=== PATIENT | male | born 1955 | race Caucasian/White ===

== ENCOUNTER 2022-03-21 15:36 | Inpatient (IN) ==
[2022-03-21 19:29] LABS: Basophils # 0.1 K/mcL (0.0-0.2); Basophils % 0.6 %; Eosinophils # 0.4 K/mcL (0.0-0.6); Eosinophils % 5.2 %; Hematocrit 33.3 % (37.5-50.1); Hemoglobin 10.8 g/dL (12.9-16.9); Immature Granulocytes % 0.4 % (0-4); Lymphocytes # 3.3 K/mcL (0.6-4.6); Lymphocytes % 39.2 %; Mean Corpuscular HGB Conc 32.4 g/dL (31.6-35.5); Mean Corpuscular Hemoglobin 28.3 pg (28.0-33.3); Mean Corpuscular Volume 87.2 fL (83.0-100.0); Mean Platelet Volume 9.1 fL (9.4-12.4); Monocytes # 0.7 K/mcL (0.0-1.3); Monocytes % 8.1 %; Platelet Count 215 K/mcL (140-400); Red Blood Count 3.82 M/mcL (4.19-5.50); Red Cell Distribution Width 15.4 % (11.5-14.5); Segmented Neutrophils % 46.5 %; White Blood Count 8.5 K/mcL (4.3-11.1)
[2022-03-21 19:36] LABS: INR 2.1; Prothrombin Time 23.7 Seconds (9.4-12.1)
[2022-03-21 19:39] LABS: Activated Partial Thrombo Time 38.9 Seconds (26.0-36.0)
[2022-03-21 19:42] LABS: BUN/Creatinine Ratio 21 (6-26); Blood Urea Nitrogen 24 mg/dL (8-23); Calcium 9.5 mg/dL (8.6-10.3); Carbon Dioxide 31 mEq/L (23-29); Chloride 97 mEq/L (98-107); Glucose 82 mg/dL (70-105); Osmolality,Calculated 281 (280-300); Potassium 4.7 mEq/L (3.5-5.1); Sodium 134 mEq/L (136-145); eGFR For African Americans > 60 (> 60); eGFR For Non-African Americans > 60 (> 60)
[2022-03-21] MEDS ORDERED: Ondansetron 4 MG/2 ML VIAL IVP PRN (19:45)
[2022-03-21] MEDS ORDERED: Naloxone 0.4 MG/ML INJ IVP PRN (19:45)
[2022-03-21] MEDS ORDERED: Melatonin 3 MG TABLET PO PRN (19:45)
[2022-03-21] MEDS: *HR* HYDROcodone/Acet 5/325 mg TABLET PO PRN (22:03)
[2022-03-21] MEDS: clonazePAM 0.5 MG TABLET PO SCH (22:03)
[2022-03-21] MEDS: Rivastigmine Tartrate (oral) 1.5 MG CAPSULE PO SCH (22:21)
[2022-03-21] MEDS ORDERED: *HR* Heparin 5,000 UNIT/ML VIAL IVP PRN (23:46)
[2022-03-22] MEDS ORDERED: *HR* Dextrose 50 % in Water (Syg) 50 ML SYRINGE IVP PRN (00:24)
[2022-03-22] MEDS ORDERED: D5% in Water 1,000 ML IVC PRN (00:24)
[2022-03-22] MEDS ORDERED: Dextrose Gel 15 GM/37.5 ML TUBE PO PRN ×2 (00:24)
[2022-03-22] MEDS ORDERED: Perflutren Lipid Microsphere 1.3 ML in 0.9 % Sodium Chloride 8.7 ML IVP PRN (00:25)
[2022-03-22 03:55] LABS: Basophils # 0.1 K/mcL (0.0-0.2); Basophils % 0.8 %; Eosinophils # 0.4 K/mcL (0.0-0.6); Eosinophils % 5.2 %; Hematocrit 30.8 % (37.5-50.1); Immature Granulocytes % 0.3 % (0-4); Lymphocytes # 2.9 K/mcL (0.6-4.6); Lymphocytes % 39.8 %; Mean Corpuscular HGB Conc 32.5 g/dL (31.6-35.5); Mean Corpuscular Hemoglobin 28.2 pg (28.0-33.3); Mean Corpuscular Volume 86.8 fL (83.0-100.0); Mean Platelet Volume 9.2 fL (9.4-12.4); Monocytes # 0.7 K/mcL (0.0-1.3); Monocytes % 9.3 %; Neutrophils # 3.3 K/mcL (1.6-8.9); Platelet Count 211 K/mcL (140-400); Red Blood Count 3.55 M/mcL (4.19-5.50); Red Cell Distribution Width 15.2 % (11.5-14.5); Segmented Neutrophils % 44.6 %; White Blood Count 7.3 K/mcL (4.3-11.1)
[2022-03-22 04:00] LABS: INR 2.1; Prothrombin Time 23.7 Seconds (9.4-12.1)
[2022-03-22 04:02] LABS: Activated Partial Thrombo Time 37.9 Seconds (26.0-36.0)
[2022-03-22 04:23] LABS: % Iron Saturation 17 % (20-55); Iron 48 mcg/dL (65-175); Transferrin 199 mg/dL (203-362)
[2022-03-22] MEDS: Heparin 25,000UNIT/250ML 1/2NS 25,000 UNIT/250 ML IV.SOLN IVC SCH ×2 (04:23→22:28)
[2022-03-22 04:24] LABS: Alanine Aminotransferase < 3 Units/L (7-52); Albumin 3.4 g/dL (3.5-5.7); Albumin/Globulin Ratio 1.2 (1.1-2.2); Alkaline Phosphatase 106 Units/L (34-104); Aspartate Amino Transferase 13 Units/L (13-39); BUN/Creatinine Ratio 20 (6-26); Bilirubin,Total 1.1 mg/dL (0.3-1.0); Blood Urea Nitrogen 20 mg/dL (8-23); Calcium 9.2 mg/dL (8.6-10.3); Carbon Dioxide 27 mEq/L (23-29); Chloride 101 mEq/L (98-107); Chol/HDL Ratio 2.9 (0-4.9); Cholesterol 89 mg/dL (< 200); Globulin 2.9 g/dL (2.4-3.5); Glucose 89 mg/dL (70-105); HDL Cholesterol 31 mg/dL (40-59); LDL Cholesterol,Calculated 39 mg/dL (< 100); Magnesium 1.8 mg/dL (1.6-2.6); Osmolality,Calculated 280 (280-300); Phosphorous 3.1 mg/dL (2.7-4.5); Potassium 4.3 mEq/L (3.5-5.1); Sodium 134 mEq/L (136-145); Thyroid Stimulating Hormone 0.693 mcIU/mL (0.340-5.600); Total Protein 6.3 g/dL (6.4-8.9); Triglycerides 97 mg/dL (< 150); eGFR For African Americans > 60 (> 60); eGFR For Non-African Americans > 60 (> 60)
[2022-03-22 04:28] LABS: Ferritin 119 ng/mL (20-250)
[2022-03-22 04:32] LABS: Folate 16.7 ng/mL (3.0-16.0)
[2022-03-22] MEDS: Rivastigmine Tartrate (oral) 1.5 MG CAPSULE PO SCH ×2 (08:17→20:47)
[2022-03-22] MEDS: Gabapentin 100 MG CAPSULE PO SCH ×4 (08:17→20:48)
[2022-03-22] MEDS: *HR* Heparin 5,000 UNIT/ML VIAL IVP PRN (10:44)
[2022-03-22] MEDS ORDERED: Furosemide 40 MG/4 ML VIAL IVP ONE (11:41)
[2022-03-22] MEDS: Carbidopa/Levodopa 25/100 TABLET PO SCH ×3 (15:29→20:48)
[2022-03-22] MEDS: *HR* OxyCODONE Immed Rel 5 MG TABLET PO PRN (18:05)
[2022-03-22] MEDS: Aspirin Enteric Coated 81 MG Tablet PO SCH (18:06)
[2022-03-22] MEDS: QUEtiapine Fumarate 25 MG TABLET PO SCH (20:47)
[2022-03-22] MEDS: clonazePAM 0.5 MG TABLET PO SCH (20:48)
[2022-03-22] MEDS: Finasteride 5 MG TABLET PO SCH (20:48)
[2022-03-23] MEDS: Carbidopa/Levodopa 25/100 TABLET PO SCH ×6 (05:48→22:54)
[2022-03-23 06:12] LABS: Basophils # 0.1 K/mcL (0.0-0.2); Basophils % 0.8 %; Eosinophils # 0.3 K/mcL (0.0-0.6); Eosinophils % 3.8 %; Hematocrit 32.9 % (37.5-50.1); Hemoglobin 10.6 g/dL (12.9-16.9); Immature Granulocytes % 0.4 % (0-4); Lymphocytes # 2.7 K/mcL (0.6-4.6); Lymphocytes % 36.8 %; Mean Corpuscular HGB Conc 32.2 g/dL (31.6-35.5); Mean Corpuscular Hemoglobin 27.7 pg (28.0-33.3); Mean Corpuscular Volume 86.1 fL (83.0-100.0); Mean Platelet Volume 9.3 fL (9.4-12.4); Monocytes # 0.7 K/mcL (0.0-1.3); Neutrophils # 3.6 K/mcL (1.6-8.9); Platelet Count 203 K/mcL (140-400); Red Blood Count 3.82 M/mcL (4.19-5.50); Red Cell Distribution Width 15.2 % (11.5-14.5); Segmented Neutrophils % 49.2 %; White Blood Count 7.4 K/mcL (4.3-11.1)
[2022-03-23 06:30] LABS: BUN/Creatinine Ratio 16 (6-26); Blood Urea Nitrogen 16 mg/dL (8-23); Calcium 9.2 mg/dL (8.6-10.3); Carbon Dioxide 29 mEq/L (23-29); Chloride 100 mEq/L (98-107); Glucose 90 mg/dL (70-105); Magnesium 1.9 mg/dL (1.6-2.6); Osmolality,Calculated 277 (280-300); Potassium 4.2 mEq/L (3.5-5.1); Sodium 133 mEq/L (136-145); eGFR For African Americans > 60 (> 60); eGFR For Non-African Americans > 60 (> 60)
[2022-03-23] MEDS: Bumetanide 1 MG TABLET PO SCH (08:08)
[2022-03-23] MEDS: Gabapentin 100 MG CAPSULE PO SCH ×3 (08:09→20:33)
[2022-03-23] MEDS: Rivastigmine Tartrate (oral) 1.5 MG CAPSULE PO SCH ×2 (08:10→20:33)
[2022-03-23] MEDS: Aspirin Enteric Coated 81 MG Tablet PO SCH (08:10)
[2022-03-23] MEDS: *HR* OxyCODONE Immed Rel 5 MG TABLET PO PRN (11:46)
[2022-03-23] MEDS: Acetaminophen 325 MG TABLET PO PRN (15:22)
[2022-03-23] MEDS: Heparin 25,000UNIT/250ML 1/2NS 25,000 UNIT/250 ML IV.SOLN IVC SCH (15:56)
[2022-03-23] MEDS: QUEtiapine Fumarate 25 MG TABLET PO SCH (20:32)
[2022-03-23] MEDS: Finasteride 5 MG TABLET PO SCH (20:33)
[2022-03-23] MEDS: clonazePAM 0.5 MG TABLET PO SCH (20:34)
[2022-03-24] MEDS: Acetaminophen 325 MG TABLET PO PRN ×2 (03:59→15:36)
[2022-03-24 05:40] LABS: Basophils # 0.1 K/mcL (0.0-0.2); Basophils % 0.5 %; Eosinophils # 0.4 K/mcL (0.0-0.6); Eosinophils % 4.2 %; Hematocrit 30.2 % (37.5-50.1); Hemoglobin 9.7 g/dL (12.9-16.9); Immature Granulocytes % 0.4 % (0-4); Lymphocytes # 2.7 K/mcL (0.6-4.6); Lymphocytes % 29.2 %; Mean Corpuscular HGB Conc 32.1 g/dL (31.6-35.5); Mean Corpuscular Hemoglobin 28.4 pg (28.0-33.3); Mean Corpuscular Volume 88.3 fL (83.0-100.0); Mean Platelet Volume 9.2 fL (9.4-12.4); Monocytes # 0.9 K/mcL (0.0-1.3); Monocytes % 9.7 %; Neutrophils # 5.1 K/mcL (1.6-8.9); Platelet Count 190 K/mcL (140-400); Red Blood Count 3.42 M/mcL (4.19-5.50); Red Cell Distribution Width 15.3 % (11.5-14.5); White Blood Count 9.2 K/mcL (4.3-11.1)
[2022-03-24] MEDS: Carbidopa/Levodopa 25/100 TABLET PO SCH ×6 (05:45→20:43)
[2022-03-24 06:56] LABS: BUN/Creatinine Ratio 17 (6-26); Blood Urea Nitrogen 19 mg/dL (8-23); Calcium 8.5 mg/dL (8.6-10.3); Carbon Dioxide 22 mEq/L (23-29); Chloride 101 mEq/L (98-107); Glucose 127 mg/dL (70-105); Magnesium 1.7 mg/dL (1.6-2.6); Osmolality,Calculated 278 (280-300); Potassium 3.8 mEq/L (3.5-5.1); Sodium 132 mEq/L (136-145); eGFR For African Americans > 60 (> 60); eGFR For Non-African Americans > 60 (> 60)
[2022-03-24] MEDS: Gabapentin 100 MG CAPSULE PO SCH ×3 (08:45→20:43)
[2022-03-24] MEDS: Rivastigmine Tartrate (oral) 1.5 MG CAPSULE PO SCH ×2 (08:47→20:43)
[2022-03-24] MEDS: Bumetanide 1 MG TABLET PO SCH (08:47)
[2022-03-24] MEDS: Aspirin Enteric Coated 81 MG Tablet PO SCH (08:47)
[2022-03-24] MEDS: Heparin 25,000UNIT/250ML 1/2NS 25,000 UNIT/250 ML IV.SOLN IVC SCH (09:57)
[2022-03-24] MEDS: *HR* OxyCODONE Immed Rel 5 MG TABLET PO PRN (12:01)
[2022-03-24] MEDS: Melatonin 3 MG TABLET PO SCH (20:43)
[2022-03-24] MEDS: Finasteride 5 MG TABLET PO SCH (20:43)
[2022-03-24] MEDS: clonazePAM 0.5 MG TABLET PO SCH (20:43)
[2022-03-24] MEDS: QUEtiapine Fumarate 25 MG TABLET PO SCH (20:43)
[2022-03-24] MEDS: Ipratropium/Albuterol Neb 3 ML IH PRN (20:58)
[2022-03-25 00:48] LABS: Basophils # 0.1 K/mcL (0.0-0.2); Basophils % 0.6 %; Eosinophils # 0.5 K/mcL (0.0-0.6); Eosinophils % 5.9 %; Hematocrit 29.7 % (37.5-50.1); Hemoglobin 9.6 g/dL (12.9-16.9); Immature Granulocytes % 0.8 % (0-4); Lymphocytes % 34.3 %; Mean Corpuscular HGB Conc 32.3 g/dL (31.6-35.5); Mean Corpuscular Hemoglobin 28.1 pg (28.0-33.3); Mean Corpuscular Volume 86.8 fL (83.0-100.0); Mean Platelet Volume 9.4 fL (9.4-12.4); Monocytes # 0.9 K/mcL (0.0-1.3); Monocytes % 10.8 %; Neutrophils # 4.1 K/mcL (1.6-8.9); Platelet Count 197 K/mcL (140-400); Red Blood Count 3.42 M/mcL (4.19-5.50); Red Cell Distribution Width 15.3 % (11.5-14.5); Segmented Neutrophils % 47.6 %; White Blood Count 8.6 K/mcL (4.3-11.1)
[2022-03-25 01:04] LABS: BUN/Creatinine Ratio 16 (6-26); Blood Urea Nitrogen 18 mg/dL (8-23); Calcium 8.5 mg/dL (8.6-10.3); Carbon Dioxide 28 mEq/L (23-29); Chloride 100 mEq/L (98-107); Glucose 97 mg/dL (70-105); Magnesium 1.7 mg/dL (1.6-2.6); Osmolality,Calculated 280 (280-300); Potassium 4.1 mEq/L (3.5-5.1); Sodium 134 mEq/L (136-145); eGFR For African Americans > 60 (> 60); eGFR For Non-African Americans > 60 (> 60)
[2022-03-25] MEDS: Heparin 25,000UNIT/250ML 1/2NS 25,000 UNIT/250 ML IV.SOLN IVC SCH ×2 (02:59→20:08)
[2022-03-25] MEDS: Carbidopa/Levodopa 25/100 TABLET PO SCH ×6 (06:15→20:10)
[2022-03-25] MEDS: Aspirin Enteric Coated 81 MG Tablet PO SCH (08:53)
[2022-03-25] MEDS: Bumetanide 1 MG TABLET PO SCH (08:53)
[2022-03-25] MEDS: Gabapentin 100 MG CAPSULE PO SCH ×3 (09:03→20:10)
[2022-03-25] MEDS: Rivastigmine Tartrate (oral) 1.5 MG CAPSULE PO SCH ×2 (09:03→20:10)
[2022-03-25 10:26] LABS: INR 1.3
[2022-03-25] MEDS: *HR* OxyCODONE Immed Rel 5 MG TABLET PO PRN (12:59)
[2022-03-25] MEDS: clonazePAM 0.5 MG TABLET PO SCH (20:10)
[2022-03-25] MEDS: Finasteride 5 MG TABLET PO SCH (20:10)
[2022-03-25] MEDS: QUEtiapine Fumarate 25 MG TABLET PO SCH (20:10)
[2022-03-25] MEDS: Melatonin 3 MG TABLET PO SCH (20:10)
[2022-03-26 01:55] LABS: Basophils # 0.1 K/mcL (0.0-0.2); Basophils % 0.7 %; Eosinophils # 0.5 K/mcL (0.0-0.6); Eosinophils % 5.3 %; Hematocrit 30.1 % (37.5-50.1); Hemoglobin 9.8 g/dL (12.9-16.9); Immature Granulocytes % 0.8 % (0-4); Lymphocytes # 2.9 K/mcL (0.6-4.6); Lymphocytes % 32.1 %; Mean Corpuscular HGB Conc 32.6 g/dL (31.6-35.5); Mean Corpuscular Hemoglobin 28.7 pg (28.0-33.3); Mean Corpuscular Volume 88.3 fL (83.0-100.0); Mean Platelet Volume 9.6 fL (9.4-12.4); Monocytes # 0.9 K/mcL (0.0-1.3); Monocytes % 10.2 %; Neutrophils # 4.6 K/mcL (1.6-8.9); Platelet Count 201 K/mcL (140-400); Red Blood Count 3.41 M/mcL (4.19-5.50); Red Cell Distribution Width 15.4 % (11.5-14.5); Segmented Neutrophils % 50.9 %; White Blood Count 8.9 K/mcL (4.3-11.1)
[2022-03-26 02:04] LABS: BUN/Creatinine Ratio 16 (6-26); Blood Urea Nitrogen 18 mg/dL (8-23); Calcium 8.7 mg/dL (8.6-10.3); Carbon Dioxide 26 mEq/L (23-29); Chloride 100 mEq/L (98-107); Glucose 92 mg/dL (70-105); Magnesium 1.8 mg/dL (1.6-2.6); Osmolality,Calculated 276 (280-300); Potassium 4.3 mEq/L (3.5-5.1); Sodium 132 mEq/L (136-145); eGFR For African Americans > 60 (> 60); eGFR For Non-African Americans > 60 (> 60)
[2022-03-26] MEDS: *HR* Heparin 5,000 UNIT/ML VIAL IVP PRN (02:26)
[2022-03-26] MEDS: *HR* HYDROcodone/Acet 5/325 mg TABLET PO PRN ×2 (04:14→19:09)
[2022-03-26] MEDS: Carbidopa/Levodopa 25/100 TABLET PO SCH ×6 (05:52→21:53)
[2022-03-26] MEDS: Aspirin Enteric Coated 81 MG Tablet PO SCH (08:27)
[2022-03-26] MEDS: Bumetanide 1 MG TABLET PO SCH (08:28)
[2022-03-26] MEDS: Rivastigmine Tartrate (oral) 1.5 MG CAPSULE PO SCH ×2 (08:28→20:23)
[2022-03-26] MEDS: Gabapentin 100 MG CAPSULE PO SCH ×3 (08:29→20:24)
[2022-03-26] MEDS: Heparin 25,000UNIT/250ML 1/2NS 25,000 UNIT/250 ML IV.SOLN IVC SCH (11:56)
[2022-03-26] MEDS: Ipratropium/Albuterol Neb 3 ML IH PRN (15:13)
[2022-03-26] MEDS: *HR* OxyCODONE Immed Rel 5 MG TABLET PO PRN (15:20)
[2022-03-26] MEDS: clonazePAM 0.5 MG TABLET PO SCH (20:24)
[2022-03-26] MEDS: QUEtiapine Fumarate 25 MG TABLET PO SCH (20:24)
[2022-03-26] MEDS: Finasteride 5 MG TABLET PO SCH (20:25)
[2022-03-26] MEDS: Melatonin 3 MG TABLET PO SCH (20:25)
[2022-03-26] MEDS ORDERED: Nystatin POWDER 30 GM BOTTLE TP PRN (22:32)
[2022-03-27] MEDS: *HR* OxyCODONE Immed Rel 5 MG TABLET PO PRN (01:53)
[2022-03-27 05:17] LABS: Basophils # 0.1 K/mcL (0.0-0.2); Basophils % 0.6 %; Eosinophils # 0.4 K/mcL (0.0-0.6); Hematocrit 30.6 % (37.5-50.1); Hemoglobin 9.8 g/dL (12.9-16.9); Immature Granulocytes % 0.8 % (0-4); Lymphocytes # 2.8 K/mcL (0.6-4.6); Lymphocytes % 31.1 %; Mean Corpuscular Hemoglobin 28.2 pg (28.0-33.3); Mean Corpuscular Volume 87.9 fL (83.0-100.0); Mean Platelet Volume 9.2 fL (9.4-12.4); Monocytes # 0.9 K/mcL (0.0-1.3); Monocytes % 9.5 %; Neutrophils # 4.9 K/mcL (1.6-8.9); Platelet Count 237 K/mcL (140-400); Red Blood Count 3.48 M/mcL (4.19-5.50); Red Cell Distribution Width 15.2 % (11.5-14.5); White Blood Count 9.1 K/mcL (4.3-11.1)
[2022-03-27 05:26] LABS: BUN/Creatinine Ratio 19 (6-26); Blood Urea Nitrogen 23 mg/dL (8-23); Carbon Dioxide 27 mEq/L (23-29); Chloride 99 mEq/L (98-107); Glucose 98 mg/dL (70-105); Osmolality,Calculated 278 (280-300); Potassium 4.9 mEq/L (3.5-5.1); Sodium 132 mEq/L (136-145); eGFR For African Americans > 60 (> 60); eGFR For Non-African Americans > 60 (> 60)
[2022-03-27 05:33] LABS: Prothrombin Time 11.5 Seconds (9.4-12.1)
[2022-03-27 05:36] LABS: Activated Partial Thrombo Time 28.2 Seconds (26.0-36.0)
[2022-03-27] MEDS: Carbidopa/Levodopa 25/100 TABLET PO SCH ×3 (05:41→21:59)
[2022-03-27] MEDS ORDERED: Heparin 1,000 UNITS/500 mL 500 ML ONE (07:09)
[2022-03-27] MEDS ORDERED: *HR* Propofol 200 MG/20 ML VIAL IVP ONE (07:11)
[2022-03-27] MEDS ORDERED: *HR* Succinylcholine 200 MG/10 ML VIAL IVP ONE (07:15)
[2022-03-27] MEDS ORDERED: Ondansetron 4 MG/2 ML VIAL ONE (07:15)
[2022-03-27] MEDS ORDERED: *HR* Rocuronium Bromide 50 MG/5 ML VIAL ONE ×2 (07:15→08:13)
[2022-03-27] MEDS ORDERED: Lidocaine -MPF 2% 5 ML VIAL ONE (07:15)
[2022-03-27] MEDS ORDERED: Bupivacaine/EPI 1:200k 0.25% 50 ML VIAL ONE (07:16)
[2022-03-27] MEDS ORDERED: *HR* Phenylephrine 10 MG/ML VIAL ONE (07:17)
[2022-03-27] MEDS ORDERED: Bacitracin OINT PKT TP ONE (07:20)
[2022-03-27] MEDS ORDERED: *HR* Remifentanil 2 MG VIAL IVP ONE ×2 (07:22→11:12)
[2022-03-27] MEDS ORDERED: *HR* FentaNYL (PF) 100 MCG/2 ML VIAL ONE (07:26)
[2022-03-27] MEDS ORDERED: PROPOFOL IVC ONE (07:32)
[2022-03-27] MEDS ORDERED: EPHEDrine 50 MG/ML VIAL ONE (07:49)
[2022-03-27] MEDS ORDERED: Ketamine HCL *QUVA* 50mg (1mL) SYRINGE ONE ×2 (07:50→13:25)
[2022-03-27] MEDS ORDERED: *HR* Magnesium Sulfate 1 GM/2 ML VIAL ONE (07:50)
[2022-03-27] MEDS ORDERED: CeFAZolin Syr 2,000MG/20 ML 2,000 MG/20 ML SYRINGE IVPB ONE (07:51)
[2022-03-27] MEDS ORDERED: Ringers Solution, Lactated 1,000 ML IVC SCH (08:00)
[2022-03-27] MEDS ORDERED: Albumin Human 5% 12.5 GM/250 ML IV.SOLN ONE (09:18)
[2022-03-27] MEDS ORDERED: Calcium Gluconate 1,000 MG/10 ML VIAL ONE (09:19)
[2022-03-27 09:26] LABS: ABG Base Excess 1 mEq/L (-2 to 3); ABG Chloride 98 mEq/L (98-107); ABG Glucose 84 mg/dL (60-95); ABG HCO3 26 mEq/L (21-27); ABG Ionized Calcium 1.26 mmol/L (1.15-1.35); ABG Oxygen Saturation 100 % (95-98); ABG PCO2 41 mmHg (35-45); ABG PH 7.41 pH Units (7.32-7.45); ABG PO2 339 mmHg (85-104); ABG TCO2 27 mEq/L (20-26)
[2022-03-27 13:43] LABS: ABG Base Excess 1 mEq/L (-2 to 3); ABG Chloride 100 mEq/L (98-107); ABG Glucose 109 mg/dL (60-95); ABG HCO3 25 mEq/L (21-27); ABG Ionized Calcium 1.26 mmol/L (1.15-1.35); ABG Oxygen Saturation 100 % (95-98); ABG PCO2 38 mmHg (35-45); ABG PH 7.42 pH Units (7.32-7.45); ABG PO2 344 mmHg (85-104); ABG TCO2 26 mEq/L (20-26)
[2022-03-27 13:56] LABS: ABG Base Excess -3 mEq/L (-2 to 3); ABG Chloride 109 mEq/L (98-107); ABG Glucose 81 mg/dL (60-95); ABG HCO3 22 mEq/L (21-27); ABG Ionized Calcium 0.84 mmol/L (1.15-1.35); ABG Oxygen Saturation 100 % (95-98); ABG PCO2 34 mmHg (35-45); ABG PH 7.41 pH Units (7.32-7.45); ABG PO2 304 mmHg (85-104); ABG TCO2 23 mEq/L (20-26)
[2022-03-27] MEDS ORDERED: *HR* Remifentanil 1 MG VIAL IVP ONE (14:18)
[2022-03-27] MEDS ORDERED: Vancomycin 1,000 MG VIAL ONE (15:33)
[2022-03-27] MEDS ORDERED: cefTRIAXone 1,000 MG in 0.9 % Sodium Chloride 10 ML IVP SCH (16:00)
[2022-03-27] MEDS ORDERED: *HR* OxyCODONE Immed Rel 5 MG TABLET PO PRN (16:23)
[2022-03-27] MEDS ORDERED: Albuterol 2.5 MG/3 ML NEBULIZER IH PRN (16:23)
[2022-03-27] MEDS ORDERED: *HR* Labetalol 20 MG/4 ML SYRINGE IVP PRN (16:23)
[2022-03-27] MEDS ORDERED: *HR* FentaNYL (PF) 100 MCG/2 ML VIAL IVP PRN (16:23)
[2022-03-27] MEDS ORDERED: *HR* Meperidine 25 MG/ML SYRINGE IVP PRN (16:23)
[2022-03-27] MEDS ORDERED: Ipratropium Neb 0.5 MG NEBULIZER IH PRN (16:23)
[2022-03-27] MEDS ORDERED: Naloxone 0.4 MG/ML INJ IVP PRN ×2 (16:23→18:57)
[2022-03-27] MEDS ORDERED: *HR* HYDROmorphone PF 0.5 MG/0.5 ML SYRINGE IVP PRN (16:23)
[2022-03-27] MEDS ORDERED: flumazeniL 0.5 MG/5 ML VIAL IVP PRN (16:23)
[2022-03-27] MEDS ORDERED: Acetaminophen IV 1,000 MG/100 ML BAG IVPB PRN (16:23)
[2022-03-27] MEDS ORDERED: Ondansetron 4 MG/2 ML VIAL IVP PRN ×2 (16:23→18:57)
[2022-03-27 17:11] LABS: ABG Base Excess 0 mEq/L (-2 to 3); ABG HCO3 25 mEq/L (21-27); ABG Oxygen Saturation 100 % (95-98); ABG PCO2 42 mmHg (35-45); ABG PH 7.38 pH Units (7.32-7.45); ABG PO2 333 mmHg (85-104); ABG TCO2 27 mEq/L (20-26)
[2022-03-27] MEDS: Aspirin Enteric Coated 81 MG Tablet PO SCH (17:40)
[2022-03-27] MEDS: Bumetanide 1 MG TABLET PO SCH (17:40)
[2022-03-27] MEDS: Gabapentin 100 MG CAPSULE PO SCH ×2 (17:41→22:01)
[2022-03-27] MEDS: Rivastigmine Tartrate (oral) 1.5 MG CAPSULE PO SCH ×2 (17:41→21:59)
[2022-03-27] MEDS ORDERED: Acetaminophen 325 MG TABLET PO PRN (18:57)
[2022-03-27] MEDS ORDERED: Dextrose Gel 15 GM/37.5 ML TUBE PO PRN ×2 (18:57)
[2022-03-27] MEDS ORDERED: Perflutren Lipid Microsphere 1.3 ML in 0.9 % Sodium Chloride 8.7 ML IVP PRN (18:57)
[2022-03-27] MEDS ORDERED: Nystatin POWDER 30 GM BOTTLE TP PRN (18:57)
[2022-03-27] MEDS ORDERED: D5% in Water 1,000 ML IVC PRN (18:57)
[2022-03-27] MEDS ORDERED: *HR* Dextrose 50 % in Water (Syg) 50 ML SYRINGE IVP PRN (18:57)
[2022-03-27] MEDS: QUEtiapine Fumarate 25 MG TABLET PO SCH (21:59)
[2022-03-27] MEDS: Melatonin 3 MG TABLET PO SCH (22:00)
[2022-03-27] MEDS: Finasteride 5 MG TABLET PO SCH (22:00)
[2022-03-27] MEDS: clonazePAM 0.5 MG TABLET PO SCH (22:01)
[2022-03-28] MEDS: Carbidopa/Levodopa 25/100 TABLET PO SCH ×6 (07:13→21:38)
[2022-03-28 08:24] LABS: Basophils % 0.1 %; Hematocrit 27.9 % (37.5-50.1); Hemoglobin 9.1 g/dL (12.9-16.9); Immature Granulocytes % 0.6 % (0-4); Lymphocytes # 1.5 K/mcL (0.6-4.6); Lymphocytes % 12.9 %; Mean Corpuscular HGB Conc 32.6 g/dL (31.6-35.5); Mean Corpuscular Hemoglobin 28.1 pg (28.0-33.3); Mean Corpuscular Volume 86.1 fL (83.0-100.0); Monocytes # 0.8 K/mcL (0.0-1.3); Monocytes % 6.6 %; Neutrophils # 9.3 K/mcL (1.6-8.9); Platelet Count 236 K/mcL (140-400); Red Blood Count 3.24 M/mcL (4.19-5.50); Segmented Neutrophils % 79.8 %; White Blood Count 11.6 K/mcL (4.3-11.1)
[2022-03-28 08:37] LABS: Prothrombin Time 11.3 Seconds (9.4-12.1)
[2022-03-28] MEDS: Aspirin Enteric Coated 81 MG Tablet PO SCH (09:02)
[2022-03-28] MEDS: Bumetanide 1 MG TABLET PO SCH (09:02)
[2022-03-28] MEDS: Rivastigmine Tartrate (oral) 1.5 MG CAPSULE PO SCH ×2 (09:03→21:38)
[2022-03-28] MEDS: Gabapentin 100 MG CAPSULE PO SCH ×3 (09:03→21:38)
[2022-03-28] MEDS: *HR* OxyCODONE Immed Rel 5 MG TABLET PO PRN (09:04)
[2022-03-28] MEDS ORDERED: *HR* Heparin 5,000 UNIT/ML VIAL IVP ONE (10:00)
[2022-03-28] MEDS ORDERED: *HR* Heparin 5,000 UNIT/ML VIAL IVP PRN (10:00)
[2022-03-28] MEDS: Heparin 25,000UNIT/250ML 1/2NS 25,000 UNIT/250 ML IV.SOLN IVC SCH ×2 (12:01→12:25)
[2022-03-28] MEDS: *HR* HYDROcodone/Acet 5/325 mg TABLET PO PRN (12:12)
[2022-03-28] MEDS: Acetaminophen IV 1,000 MG/100 ML BAG IVPB SCH ×2 (14:13→18:22)
[2022-03-28] MEDS: cefTRIAXone 1,000 MG in 0.9 % Sodium Chloride 10 ML IVP SCH (16:55)
[2022-03-28] MEDS ORDERED: *HR* Warfarin 3 MG TABLET PO ONE (18:00)
[2022-03-28] MEDS ORDERED: Warfarin perPT PO PRN (18:00)
[2022-03-28] MEDS: Finasteride 5 MG TABLET PO SCH (21:38)
[2022-03-28] MEDS: QUEtiapine Fumarate 25 MG TABLET PO SCH (21:38)
[2022-03-28] MEDS: Melatonin 3 MG TABLET PO SCH (21:39)
[2022-03-28] MEDS: clonazePAM 0.5 MG TABLET PO SCH (21:39)
[2022-03-28] MEDS: *HR* Heparin 5,000 UNIT/ML VIAL IVP PRN (22:06)
[2022-03-29] MEDS: Acetaminophen IV 1,000 MG/100 ML BAG IVPB SCH ×4 (00:03→17:50)
[2022-03-29] MEDS: *HR* HYDROcodone/Acet 5/325 mg TABLET PO PRN ×2 (02:50→12:59)
[2022-03-29] MEDS: Ipratropium/Albuterol Neb 3 ML IH PRN (03:00)
[2022-03-29 05:26] LABS: Heparin anti-factor XA UFH 0.27 IU/mL (0.30-0.70); Prothrombin Time 10.9 Seconds (9.4-12.1)
[2022-03-29 05:42] LABS: Hemoglobin 7.9 g/dL (12.9-16.9)
[2022-03-29 05:44] LABS: Basophils % 0.4 %; Eosinophils # 0.3 K/mcL (0.0-0.6); Eosinophils % 2.7 %; Immature Granulocytes % 0.6 % (0-4); Immature Platelets 1.7 % (1.1-6.1); Lymphocytes # 2.1 K/mcL (0.6-4.6); Lymphocytes % 22.9 %; Mean Corpuscular HGB Conc 31.6 g/dL (31.6-35.5); Mean Corpuscular Hemoglobin 28.5 pg (28.0-33.3); Mean Corpuscular Volume 90.3 fL (83.0-100.0); Mean Platelet Volume 9.8 fL (9.4-12.4); Neutrophils # 5.8 K/mcL (1.6-8.9); Platelet Count 207 K/mcL (140-400); Red Blood Count 2.77 M/mcL (4.19-5.50); Red Cell Distribution Width 15.2 % (11.5-14.5); Segmented Neutrophils % 62.4 %; White Blood Count 9.3 K/mcL (4.3-11.1)
[2022-03-29] MEDS: *HR* Heparin 5,000 UNIT/ML VIAL IVP PRN (05:46)
[2022-03-29] MEDS: Carbidopa/Levodopa 25/100 TABLET PO SCH ×6 (05:46→20:42)
[2022-03-29 06:50] LABS: BUN/Creatinine Ratio 31 (6-26); Blood Urea Nitrogen 29 mg/dL (8-23); Calcium 7.6 mg/dL (8.6-10.3); Carbon Dioxide 28 mEq/L (23-29); Chloride 100 mEq/L (98-107); Glucose 115 mg/dL (70-105); Osmolality,Calculated 285 (280-300); Sodium 134 mEq/L (136-145); eGFR For African Americans > 60 (> 60); eGFR For Non-African Americans > 60 (> 60)
[2022-03-29] MEDS: Aspirin Enteric Coated 81 MG Tablet PO SCH (09:02)
[2022-03-29] MEDS: Gabapentin 100 MG CAPSULE PO SCH ×3 (09:02→20:33)
[2022-03-29] MEDS: Rivastigmine Tartrate (oral) 1.5 MG CAPSULE PO SCH ×2 (09:04→20:33)
[2022-03-29] MEDS: Bumetanide 1 MG TABLET PO SCH (09:04)
[2022-03-29] MEDS: *HR* OxyCODONE Immed Rel 5 MG TABLET PO PRN ×3 (09:18→21:59)
[2022-03-29] MEDS: Heparin 25,000UNIT/250ML 1/2NS 25,000 UNIT/250 ML IV.SOLN IVC SCH (09:28)
[2022-03-29] MEDS: cefTRIAXone 1,000 MG in 0.9 % Sodium Chloride 10 ML IVP SCH (16:12)
[2022-03-29 16:50] LABS: Hematocrit 25.5 % (37.5-50.1); Hemoglobin 8.2 g/dL (12.9-16.9)
[2022-03-29] MEDS ORDERED: *HR* Warfarin 5 MG TABLET PO ONE (18:00)
[2022-03-29] MEDS: QUEtiapine Fumarate 25 MG TABLET PO SCH (20:33)
[2022-03-29] MEDS: Melatonin 3 MG TABLET PO SCH (20:34)
[2022-03-29] MEDS: clonazePAM 0.5 MG TABLET PO SCH (20:34)
[2022-03-29] MEDS: Finasteride 5 MG TABLET PO SCH (20:35)
[2022-03-30] MEDS: Acetaminophen IV 1,000 MG/100 ML BAG IVPB SCH ×4 (00:04→18:36)
[2022-03-30 05:17] LABS: Mean Platelet Volume 9.9 fL (9.4-12.4); Monocytes % 11.4 %
[2022-03-30 05:19] LABS: Prothrombin Time 11.4 Seconds (9.4-12.1)
[2022-03-30 05:20] LABS: Basophils % 0.4 %; Eosinophils # 0.7 K/mcL (0.0-0.6); Eosinophils % 6.3 %; Hematocrit 28.4 % (37.5-50.1); Immature Granulocytes % 1.1 % (0-4); Immature Platelets 2.7 % (1.1-6.1); Lymphocytes # 2.1 K/mcL (0.6-4.6); Lymphocytes % 18.9 %; Mean Corpuscular HGB Conc 31.7 g/dL (31.6-35.5); Mean Corpuscular Hemoglobin 28.5 pg (28.0-33.3); Mean Corpuscular Volume 89.9 fL (83.0-100.0); Monocytes # 1.3 K/mcL (0.0-1.3); Neutrophils # 6.9 K/mcL (1.6-8.9); Platelet Count 244 K/mcL (140-400); Red Blood Count 3.16 M/mcL (4.19-5.50); Red Cell Distribution Width 15.2 % (11.5-14.5); Segmented Neutrophils % 61.9 %; White Blood Count 11.2 K/mcL (4.3-11.1)
[2022-03-30] MEDS: Carbidopa/Levodopa 25/100 TABLET PO SCH ×6 (07:05→21:39)
[2022-03-30] MEDS: Aspirin Enteric Coated 81 MG Tablet PO SCH (09:25)
[2022-03-30] MEDS: Rivastigmine Tartrate (oral) 1.5 MG CAPSULE PO SCH ×2 (09:26→21:39)
[2022-03-30] MEDS: *HR* OxyCODONE Immed Rel 5 MG TABLET PO PRN ×2 (09:26→21:39)
[2022-03-30] MEDS: Gabapentin 100 MG CAPSULE PO SCH ×3 (09:30→21:40)
[2022-03-30] MEDS: Bumetanide 1 MG TABLET PO SCH (09:30)
[2022-03-30 14:58] LABS: BUN/Creatinine Ratio 24 (6-26); Blood Urea Nitrogen 25 mg/dL (8-23); Calcium 8.2 mg/dL (8.6-10.3); Carbon Dioxide 27 mEq/L (23-29); Chloride 99 mEq/L (98-107); Glucose 143 mg/dL (70-105); Osmolality,Calculated 281 (280-300); Potassium 4.3 mEq/L (3.5-5.1); Sodium 132 mEq/L (136-145); eGFR For African Americans > 60 (> 60); eGFR For Non-African Americans > 60 (> 60)
[2022-03-30] MEDS ORDERED: *HR* Warfarin 7.5 MG TABLET PO ONE (18:00)
[2022-03-30] MEDS: cefTRIAXone 1,000 MG in 0.9 % Sodium Chloride 10 ML IVP SCH (18:26)
[2022-03-30] MEDS: QUEtiapine Fumarate 25 MG TABLET PO SCH (21:38)
[2022-03-30] MEDS: Melatonin 3 MG TABLET PO SCH (21:38)
[2022-03-30] MEDS: Finasteride 5 MG TABLET PO SCH (21:38)
[2022-03-30] MEDS: clonazePAM 0.5 MG TABLET PO SCH (21:39)
[2022-03-31] MEDS: Carbidopa/Levodopa 25/100 TABLET PO SCH ×6 (01:56→20:56)
[2022-03-31] MEDS: Acetaminophen IV 1,000 MG/100 ML BAG IVPB SCH ×5 (02:03→23:21)
[2022-03-31 03:27] LABS: Basophils % 0.4 %; Eosinophils # 0.6 K/mcL (0.0-0.6); Hematocrit 24.8 % (37.5-50.1); Hemoglobin 7.9 g/dL (12.9-16.9); Immature Granulocytes % 0.8 % (0-4); Lymphocytes # 2.1 K/mcL (0.6-4.6); Lymphocytes % 18.2 %; Mean Corpuscular HGB Conc 31.9 g/dL (31.6-35.5); Mean Corpuscular Hemoglobin 28.3 pg (28.0-33.3); Mean Corpuscular Volume 88.9 fL (83.0-100.0); Mean Platelet Volume 8.9 fL (9.4-12.4); Monocytes % 9.2 %; Neutrophils # 7.5 K/mcL (1.6-8.9); Platelet Count 246 K/mcL (140-400); Red Blood Count 2.79 M/mcL (4.19-5.50); Red Cell Distribution Width 14.9 % (11.5-14.5); Segmented Neutrophils % 66.4 %; White Blood Count 11.4 K/mcL (4.3-11.1)
[2022-03-31 03:34] LABS: INR 1.2; Prothrombin Time 13.4 Seconds (9.4-12.1)
[2022-03-31 03:49] LABS: BUN/Creatinine Ratio 23 (6-26); Blood Urea Nitrogen 21 mg/dL (8-23); Calcium 8.4 mg/dL (8.6-10.3); Carbon Dioxide 27 mEq/L (23-29); Chloride 98 mEq/L (98-107); Glucose 110 mg/dL (70-105); Osmolality,Calculated 276 (280-300); Potassium 4.3 mEq/L (3.5-5.1); Sodium 131 mEq/L (136-145); eGFR For African Americans > 60 (> 60); eGFR For Non-African Americans > 60 (> 60)
[2022-03-31] MEDS: *HR* OxyCODONE Immed Rel 5 MG TABLET PO PRN ×2 (06:06→18:51)
[2022-03-31] MEDS: Rivastigmine Tartrate (oral) 1.5 MG CAPSULE PO SCH ×2 (08:30→20:56)
[2022-03-31] MEDS: Bumetanide 1 MG TABLET PO SCH (08:30)
[2022-03-31] MEDS: Gabapentin 100 MG CAPSULE PO SCH ×3 (08:31→20:57)
[2022-03-31] MEDS: Aspirin Enteric Coated 81 MG Tablet PO SCH (08:31)
[2022-03-31] MEDS: *HR* HYDROcodone/Acet 5/325 mg TABLET PO PRN ×2 (08:38→16:08)
[2022-03-31 10:02] LABS: Hematocrit 25.7 % (37.5-50.1); Hemoglobin 8.2 g/dL (12.9-16.9)
[2022-03-31] MEDS ORDERED: *HR* Warfarin 7.5 MG TABLET PO ONE (18:00)
[2022-03-31] MEDS: cefTRIAXone 1,000 MG in 0.9 % Sodium Chloride 10 ML IVP SCH (19:01)
[2022-03-31] MEDS: QUEtiapine Fumarate 25 MG TABLET PO SCH (20:56)
[2022-03-31] MEDS: Finasteride 5 MG TABLET PO SCH (20:57)
[2022-03-31] MEDS: Melatonin 3 MG TABLET PO SCH (20:57)
[2022-03-31] MEDS: clonazePAM 0.5 MG TABLET PO SCH (20:57)
[2022-04-01] MEDS: Ipratropium/Albuterol Neb 3 ML IH PRN (03:32)
[2022-04-01] MEDS: *HR* OxyCODONE Immed Rel 5 MG TABLET PO PRN ×2 (03:36→18:16)
[2022-04-01] MEDS: Acetaminophen IV 1,000 MG/100 ML BAG IVPB SCH (05:49)
[2022-04-01] MEDS: Carbidopa/Levodopa 25/100 TABLET PO SCH ×6 (06:19→22:23)
[2022-04-01 07:00] LABS: Basophils % 0.4 %; Eosinophils # 0.4 K/mcL (0.0-0.6); Eosinophils % 3.7 %; Hematocrit 25.1 % (37.5-50.1); Hemoglobin 8.1 g/dL (12.9-16.9); Immature Granulocytes % 0.9 % (0-4); Lymphocytes # 1.8 K/mcL (0.6-4.6); Lymphocytes % 16.5 %; Mean Corpuscular HGB Conc 32.3 g/dL (31.6-35.5); Mean Corpuscular Hemoglobin 28.4 pg (28.0-33.3); Mean Corpuscular Volume 88.1 fL (83.0-100.0); Mean Platelet Volume 8.7 fL (9.4-12.4); Monocytes # 0.9 K/mcL (0.0-1.3); Monocytes % 7.9 %; Neutrophils # 7.6 K/mcL (1.6-8.9); Platelet Count 268 K/mcL (140-400); Red Blood Count 2.85 M/mcL (4.19-5.50); Red Cell Distribution Width 14.6 % (11.5-14.5); Segmented Neutrophils % 70.6 %; White Blood Count 10.8 K/mcL (4.3-11.1)
[2022-04-01 07:08] LABS: INR 1.7; Prothrombin Time 18.7 Seconds (9.4-12.1)
[2022-04-01 07:19] LABS: BUN/Creatinine Ratio 21 (6-26); Blood Urea Nitrogen 19 mg/dL (8-23); Calcium 8.5 mg/dL (8.6-10.3); Carbon Dioxide 27 mEq/L (23-29); Chloride 97 mEq/L (98-107); Glucose 104 mg/dL (70-105); Osmolality,Calculated 271 (280-300); Potassium 4.5 mEq/L (3.5-5.1); Sodium 129 mEq/L (136-145); eGFR For African Americans > 60 (> 60); eGFR For Non-African Americans > 60 (> 60)
[2022-04-01] MEDS: Rivastigmine Tartrate (oral) 1.5 MG CAPSULE PO SCH ×2 (08:50→22:24)
[2022-04-01] MEDS: Bumetanide 1 MG TABLET PO SCH (08:50)
[2022-04-01] MEDS: Aspirin Enteric Coated 81 MG Tablet PO SCH (08:50)
[2022-04-01] MEDS: Gabapentin 100 MG CAPSULE PO SCH ×3 (08:51→22:25)
[2022-04-01] MEDS: *HR* HYDROcodone/Acet 5/325 mg TABLET PO PRN (09:03)
[2022-04-01] MEDS ORDERED: Acetaminophen 325 MG TABLET PO PRN (10:28)
[2022-04-01] MEDS ORDERED: *HR* Warfarin 5 MG TABLET PO ONE (18:00)
[2022-04-01] MEDS: QUEtiapine Fumarate 25 MG TABLET PO SCH (22:24)
[2022-04-01] MEDS: clonazePAM 0.5 MG TABLET PO SCH (22:25)
[2022-04-01] MEDS: Melatonin 3 MG TABLET PO SCH (22:26)
[2022-04-01] MEDS: Finasteride 5 MG TABLET PO SCH (22:26)
[2022-04-02] MEDS: *HR* OxyCODONE Immed Rel 5 MG TABLET PO PRN ×3 (03:54→18:17)
[2022-04-02] MEDS: Ipratropium/Albuterol Neb 3 ML IH PRN ×2 (04:58→12:23)
[2022-04-02] MEDS: Carbidopa/Levodopa 25/100 TABLET PO SCH ×5 (06:33→18:17)
[2022-04-02 06:54] LABS: Basophils # 0.1 K/mcL (0.0-0.2); Basophils % 0.6 %; Eosinophils # 0.5 K/mcL (0.0-0.6); Eosinophils % 5.7 %; Hematocrit 25.2 % (37.5-50.1); Hemoglobin 8.1 g/dL (12.9-16.9); Immature Granulocytes % 1.2 % (0-4); Lymphocytes # 2.4 K/mcL (0.6-4.6); Lymphocytes % 29.4 %; Mean Corpuscular HGB Conc 32.1 g/dL (31.6-35.5); Mean Corpuscular Hemoglobin 28.3 pg (28.0-33.3); Mean Corpuscular Volume 88.1 fL (83.0-100.0); Mean Platelet Volume 8.7 fL (9.4-12.4); Monocytes # 0.9 K/mcL (0.0-1.3); Monocytes % 11.1 %; Neutrophils # 4.3 K/mcL (1.6-8.9); Platelet Count 284 K/mcL (140-400); Red Blood Count 2.86 M/mcL (4.19-5.50); Red Cell Distribution Width 14.6 % (11.5-14.5); White Blood Count 8.3 K/mcL (4.3-11.1)
[2022-04-02 07:01] LABS: INR 1.8; Prothrombin Time 20.4 Seconds (9.4-12.1)
[2022-04-02 07:12] LABS: BUN/Creatinine Ratio 22 (6-26); Blood Urea Nitrogen 21 mg/dL (8-23); Calcium 8.7 mg/dL (8.6-10.3); Carbon Dioxide 32 mEq/L (23-29); Chloride 96 mEq/L (98-107); Glucose 96 mg/dL (70-105); Osmolality,Calculated 277 (280-300); Potassium 4.1 mEq/L (3.5-5.1); Sodium 132 mEq/L (136-145); eGFR For African Americans > 60 (> 60); eGFR For Non-African Americans > 60 (> 60)
[2022-04-02] MEDS: Aspirin Enteric Coated 81 MG Tablet PO SCH (08:56)
[2022-04-02] MEDS: Rivastigmine Tartrate (oral) 1.5 MG CAPSULE PO SCH (08:56)
[2022-04-02] MEDS: Gabapentin 100 MG CAPSULE PO SCH ×2 (08:56→15:39)
[2022-04-02] MEDS: Bumetanide 1 MG TABLET PO SCH (09:09)
[2022-04-02 14:14] LABS: Adenovirus Not Detected (Not Detect); Bordetella Pertussis Not Detected (Not Detect); Chlamydophila pneumoniae Not Detected (Not Detect); Coronavirus 229E Not Detected (Not Detect); Coronavirus HKU1 Not Detected (Not Detect); Coronavirus NL63 Not Detected (Not Detect); Coronavirus OC43 Not Detected (Not Detect); Human Metapneumovirus Not Detected (Not Detect); Human Rhinovirus/Enterovirus Not Detected (Not Detect); Influenza A Subtype 2009 H1 Not Detected (Not Detect); Influenza B Not Detected (Not Detect); Mycoplasma pneumoniae Not Detected (Not Detect); Parainfluenza Virus 1 Not Detected (Not Detect); Parainfluenza Virus 2 Not Detected (Not Detect); Parainfluenza Virus 3 Not Detected (Not Detect); Parainfluenza Virus 4 Not Detected (Not Detect); Respiratory Syncytial Virus Not Detected (Not Detect); SARS-CoV-2 Not Detected (Not Detect)
[2022-04-02] MEDS: *HR* HYDROcodone/Acet 5/325 mg TABLET PO PRN (15:53)
[2022-04-02 16:35] VITALS: BP 136/70; PULSE 81; TEMP 98.2; O2SAT 97
[2022-04-02 17:23] LABS: INR 1.8; Prothrombin Time 19.8 Seconds (9.4-12.1)
[2022-04-02] MEDS ORDERED: *HR* Warfarin 5 MG TABLET PO ONE (18:00)
== END 2022-04-02 18:50 | DRG 459 ==
LOC: EMEROOARM 15:36 → 4WAOSI 15:36 → SUATTDRO 18:13 → 4WAOSI 19:41 → SUATTDRO 20:10
PROVIDERS: ADMIT Internal Medicine; ATTEND Internal Medicine